=== PATIENT | female | born 1950 | race Caucasian/White ===

== ENCOUNTER 2023-05-29 10:15 | Day surgery (SDC) | payer OTHER ==
[2023-05-27 13:56] LABS: Potassium 3.7 mEq/L (3.5-5.1)
--- NOTE | 2023-05-28 08:00 | EKG ---
Test Date: 2023-05-27 Test Time: 13:25:47 Railroad Inspector: LONNIE MEASUREMENT RESULTS: Intervals: Rate: 95 MT: 148 QRSD: 120 QT: 356 QTc: 447 [place]: P: 52 MT: 148 QRS: 104 T: -4 INTERPRETIVE STATEMENTS: Normal sinus rhythm Right bundle branch block Inferior infarct, age undetermined Abnormal ECG No previous ECG available for comparison Electronically Signed On 05-28-23 07:57:44 CDT by Tay Senior
[2023-05-29] MEDS ORDERED: NA CHLORIDE 0.9% 1,000 ML ONE (10:56)
[2023-05-29] MEDS ORDERED: propofoL 200 MG/20 ML VIAL IV ONE (13:36)
[2023-05-29] MEDS ORDERED: MIDAZOLAM HCL 2 MG/2 ML INJ ONE (13:36)
[2023-05-29] MEDS ORDERED: FENTANYL CITR 100 MCG/2 ML ONE (13:36)
[2023-05-29] MEDS ORDERED: KETOROLAC 30 MG/ML INJ ONE ×2 (13:46→13:48)
[2023-05-29] MEDS ORDERED: ONDANSETRON 4 MG/2 ML VIAL ONE (13:48)
[2023-05-29] MEDS ORDERED: LIDOCAINE 2% MPF 5 ML VIAL ONE (13:48)
[2023-05-29] MEDS ORDERED: LIDOCAINE HCL/EPINEPHRINE 20 ML MDV ONE (14:02)
[2023-05-29] MEDS ORDERED: EPHEDRINE SULF 50 MG/ML VIAL ONE (15:05)
--- NOTE | 2023-05-29 15:11 | P.OP ---
Hebrew Cantor: NONE,NONE Preoperative diagnosis: Basal cell carcinoma left ear Postoperative diagnosis: Same Primary procedure: Excision skin malignancy, left ear 2.1 x 1.1 cm Secondary procedure: Intermediate repair, left ear, 2.5cm Anesthesia: general via LMA Estimated blood loss: 5ml Specimen: left ear, suture 12 oclock/superior, frozen section Findings: margins negative on frozen section Operative Technique: After successful induction of anesthesia, the patient's head was turned towards the right for better exposure of the left ear. The root of the helix and surrounding preauricular region was injected with 1% lidocaine with epinephrine. A total of 8 mL was used. The biopsy site was noted with central crust. A incision was designed around the gross lesion with 2 to 3 mm of normal skin from the visible edge of the tumor. The skin was incised using a 15 blade scalpel and sharply elevated off of the underlying fatty tissues. At the lateral aspect, the incision was around the edge of the helical cartilage. A small portion of the cartilage was excised with the specimen. A suture was placed at the superiormost aspect, indicating 12:00 and sent to pathology for frozen section analysis. The pathologist confirmed negative margins. The defect was 2.1 x 1.1 cm. The skin in the anterior portion of the wound was widely elevated approximately 1-1/2 to 2 cm along the full length. This allowed for advancement of the skin over the defect. The tissue was secured using interrupted 4 oh deep sutures. The skin was closed in a running fashion using 5-0 fast absorbing gut. The closure was found to offer good overall cosmesis. The skin was cleaned and dried and triple antibiotic ointment was applied to the incision. The patient was returned to care of anesthesia for awakening and extubation in the operating which proceeded without difficulty. Complications: None Implants: none Fluids & blood products: crystalloid Transferred to: Recovery Room Condition: Good
[2023-05-29 16:14] VITALS: O2SAT 96
[2023-05-29 16:54] VITALS: BP 117/61; TEMP 97.1
== END 2023-05-29 17:20 | disposition home or self-care (01) ==
LOC: OR 10:15
PROVIDERS: ATTEND Otolaryngology
PROC: 0HX3XZZ Transfer Left Ear Skin, External Approach (ICD-10-PCS; principal; 2023-05-29 11:45)
DX: C44.219 Basal cell carcinoma of skin of left ear and external auricular canal (principal); E03.9 Hypothyroidism, unspecified; E78.5 Hyperlipidemia, unspecified; J45.909 Unspecified asthma, uncomplicated; K21.9 Gastro-esophageal reflux disease without esophagitis; E11.9 Type 2 diabetes mellitus without complications
CPT/HCPCS: 93005; 80048; 36415; 82947 ×2; 88331; 88332; 88305; 14060; J2704; J2001; J2250; J3010; J2405; J7030

== ENCOUNTER 2024-05-12 08:31 | Day surgery (SDC) | payer OTHER ==
[2024-05-10 16:05] LABS: Absolute Basophils 0.1 K/uL (0-0.5); Absolute Eosinophils 0.7 K/uL (0-0.5); Absolute Lymphocytes (CBC) 2.3 K/uL (0.7-4.9); Absolute Monocytes 0.6 K/uL (0.1-1.3); Absolute Neutrophil 5.3 K/uL (1.8-8.0); Basophils % 0.9 % (0-1.3); Eosinophils % 7.5 % (0-4.4); Hematocrit 38.4 % (36.0-45.0); Hemoglobin 12.4 g/dL (12.0-15.0); Lymphocytes % 25.3 % (15.3-44.8); MCH 30.9 pg (27.0-35.0); MCHC 32.2 g/dL (32.0-36.0); MCV 95.9 fL (80-100); MPV 8.4 fL (7.6-11.3); Monocytes % 6.9 % (3.3-12.3); Neutrophils % 59.4 % (41.7-73.7); Platelets 282 thou/uL (152-406); Red Cell Distribution Width 14.8 % (12.1-15.2)
[2024-05-10 16:13] LABS: PT Prothrombin Time 12.3 SECONDS (9.4-12.5); PTT, Activated Partial Thromb 33.1 SECONDS (24.3-36.9); Protime INR 1.1
[2024-05-10 16:34] LABS: Anion Gap 9.5 mEq/L (5.0-15.0); Potassium 3.5 mEq/L (3.5-5.1)
--- NOTE | 2024-05-10 16:40 | RAD REPORT ---
EXAMINATION: TWO VIEW CHEST XR CLINICAL INDICATION: Female, 74 years old. [facility] Pre-op pending right heart catheterization. Diabetes TECHNIQUE: 2 view radiographs of the chest were performed. COMPARISON: 06/09/2023 chest x-ray FINDINGS: The lungs are well inflated. Stable central predominant interstitial and reticular opacities. No pneu mothorax or sizable effusion. The heart is normal in size. Large diaphragmatic hernia again seen. IMPRESSION: Stable pattern of central interstitial and reticular opacities, suggesting chronic pulmonary fibrosis . Stable large diaphragmatic hernia. No other acute findings.
[~2024-05-12 08:31] MED LIST: NA CHLORIDE 0.9% 500 ML ONE
[2024-05-12] MEDS ORDERED: HEPARIN 10,000 UNIT/10 ML VIAL IV ONE (08:36)
[2024-05-12] MEDS ORDERED: HEPA 1000U/500MLS 2,000 UNIT/1,000 ML BAG IV ONE (08:36)
[2024-05-12] MEDS ORDERED: LIDOCAINE 1% 20 ML MDV ONE (08:36)
[2024-05-12] MEDS ORDERED: ATROPINE SULF 1 MG/10 ML SYR IV ONE (08:36)
[2024-05-12] MEDS ORDERED: HEPARIN 5000 UNIT/ML 1 ML VIAL ONE (08:36)
[2024-05-12] MEDS ORDERED: ASPIRIN 325 MG TAB ONE (08:37)
[2024-05-12] MEDS ORDERED: TICAGRELOR 90 MG TABLET PO ONE (08:37)
[2024-05-12] MEDS ORDERED: NA CHLORIDE 0.9% 500 ML ONE (08:39)
[2024-05-12] MEDS ORDERED: FENTANYL CITR 100 MCG/2 ML ONE (08:49)
[2024-05-12] MEDS ORDERED: MIDAZOLAM HCL 2 MG/2 ML INJ ONE (08:50)
[2024-05-12 11:04] VITALS: O2SAT 99
[2024-05-12 11:19] VITALS: TEMP 97.8
[2024-05-12 11:30] VITALS: BP 126/58
--- NOTE | 2024-05-12 16:58 | EKG ---
Test Date: 2024-05-10 Test Time: 15:20:22 Recruiting Intern: CORIE MEASUREMENT RESULTS: Intervals: Rate: 101 NE: 146 QRSD: 118 QT: 346 QTc: 448 [place]: P: 61 NE: 146 QRS: 90 T: 11 INTERPRETIVE STATEMENTS: Sinus tachycardia with occasional premature ventricular complexes Possible Left atrial enlargement Incomplete right bundle branch block Possible Right ventricular hypertrophy Abnormal ECG Compared to ECG 05/27/2023 13:25:47 Ventricular premature complex(es) now present Incomplete right bundle-branch block now present Sinus rhythm no longer present Right bundle-branch block no longer present Myocardial infarct finding no longer present Electronically Signed On 05-12-24 16:51:50 CDT by Tay Senior
--- NOTE | 2024-05-13 10:27 | OP ---
Date of Procedure: 05/12/2024 Surgeon: Macario Bolaños Procedure Performed: Right heart catheterization. Indication For Procedure: Pulmonary hypertension. Complications: None. Estimated Blood Loss: Less than 50 cc. Access: Right IJ, closed by manual compression. Sedation Time: 20 minutes with 1 of Versed and 25 of fentanyl. Description Of Procedure: After risks, benefits, and alternatives were explained to the patient, the patient agreed to proceed with procedure and signed informed consent. The patient was brought back to the mill labor supervisor, prepped and draped in a sterile fashion. Time-out was performed. Sedation was admi nistered. Next, right IJ access was obtained. A 7-[place] sheath was inserted. [place] catheter was us ed for measuring filling pressures. At the end of procedure, [place] was removed. Sheath was removed. Manual compression applied and hemostasis achieved. The patient was moved to recovery in stable con dition. Findings: 1.RA pressure 2 mmHg. 2.RV 147/2 mmHg. 3.PA 50/16 with mean of 29 mmHg. 4.Pulmonary capillary wedge pressure is 7 mmHg. 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 Plan is to continue sildenafil and we will add further medications when seen in clinic. KAYLA/LONNIE Voice ID: [id number] Report ID: [id number]
== END 2024-05-12 11:26 | disposition home or self-care (01) ==
LOC: CCL 08:31
PROVIDERS: ADMIT Internal Medicine; ATTEND Internal Medicine Interventional Cardiology
DX: I27.23 Pulmonary hypertension due to lung diseases and hypoxia (principal); Z99.81 Dependence on supplemental oxygen; J84.10 Pulmonary fibrosis, unspecified; E78.2 Mixed hyperlipidemia; E11.9 Type 2 diabetes mellitus without complications; Z79.82 Long term (current) use of aspirin; Z79.84 Long term (current) use of oral hypoglycemic drugs; Z79.899 Other long term (current) drug therapy
CPT/HCPCS: 93005; 85025; 80048; 36415; 85610; 82947; 85730; 71046; 76937; C1893; J2001; J2250; J3010; J7040 ×2; 99152; 99153; J0461; J1644